=== PATIENT | female | born 1970 | race Caucasian/White ===

== ENCOUNTER → 2016-06-09 | Outpatient (CLI) | payer BC, OTHER ==
--- NOTE | 2016-06-18 07:00 | REP ---
Clinical: Pain with recent trauma. Technique: AP, lateral, bilateral oblique views of the left foot. Findings: Age-related degenerative changes are appreciated including moderate calcaneal heal spur. No obvious acute fracture or dislocation identified. No subcutaneous emphysema or radiodense foreign body. Impression: Degenerative changes. No acute fracture or dislocation. Signed by [place] Bartholomew MD 06/18/2016 06:52 A
== END ==
LOC: M ADAMS 10:59
PROVIDERS: ATTEND Physician Assistant
DX: M77.32 Calcaneal spur, left foot (principal)

== ENCOUNTER → 2017-04-22 | Outpatient (REF) | payer OTHER ==
[2017-04-22 13:27] LABS: BASO # 0.1 10^3/uL (0.0-0.2); BASO % 0.8 % (0.0-1.0); EOS # 0.2 10^3/uL (0.0-0.50); EOS % 2.6 % (0.0-3.0); HEMATOCRIT 37.3 % (36.0-47.0); HEMOGLOBIN 11.8 g/dl (12.0-16.0); IMMATURE GRANULOCYTE % 0.2 % (0-3.0); LYMPH % 33.1 % (24.0-44.0); MEAN CORPUSCULAR HEMOGLOBIN 24.9 pg (27.0-33.0); MEAN CORPUSCULAR HGB CONC 31.6 g/dl (32.0-36.5); MEAN CORPUSCULAR VOLUME 78.7 fl (80.0-96.0); MONO # 0.4 10^3/uL (0.0-0.8); MONO % 7.2 % (0.0-5.0); NEUTROPHILS # 3.4 10^3/uL (1.8-7.7); NEUTROPHILS % 56.1 % (36.0-66.0); PLATELET COUNT, AUTOMATED 259 10^3/uL (150-450); RED BLOOD COUNT 4.74 10^6/uL (4.00-5.40); RED CELL DISTRIBUTION WIDTH 14.5 % (11.5-14.5); WHITE BLOOD COUNT 6.1 10^3/uL (4.0-10.0)
[2017-04-22 13:44] LABS: TOTAL 25(OH) VITAMIN D 27.3 NG/ML (30.0-100.0)
[2017-04-22 13:52] LABS: ALBUMIN 3.4 GM/DL (3.2-5.2); ALBUMIN/GLOBULIN RATIO 1.03 (1.00-1.93); ALKALINE PHOSPHATASE 85 U/L (45-117); ALT/SGPT 13 U/L (12-78); ANION GAP 5 MEQ/L (8-16); AST/SGOT 11 U/L (7-37); BILIRUBIN,TOTAL 0.4 MG/DL (0.2-1.0); BLOOD UREA NITROGEN 9 MG/DL (7-18); CALCIUM LEVEL 8.5 MG/DL (8.5-10.1); CARBON DIOXIDE LEVEL 31 MEQ/L (21-32); CHLORIDE LEVEL 106 MEQ/L (98-107); CHOLESTEROL LEVEL 195 MG/DL (<200); CHOLESTEROL RISK RATIO 2.468 (<5); CREATININE FOR GFR 0.68 MG/DL (0.55-1.30); GLOMERULAR FILTRATION RATE > 60.0 (>58); GLUCOSE, FASTING 91 MG/DL (70-100); HDL CHOLESTEROL 79 MG/DL (>40); LDL CHOLESTEROL 95.8 MG/DL (<100); NON-HDL-C 116 MG/DL; POTASSIUM SERUM 4.1 MEQ/L (3.5-5.1); SODIUM LEVEL 142 MEQ/L (136-145); TOTAL PROTEIN 6.7 GM/DL (6.4-8.2); TRIGLYCERIDES LEVEL 101 MG/DL (<150)
== END ==
LOC: M SFHCADAM 07:51
DX: G43.009 Migraine without aura, not intractable, without status migrainosus (principal); I10 Essential (primary) hypertension; F41.9 Anxiety disorder, unspecified; Z63.9 Problem related to primary support group, unspecified; Z98.84 Bariatric surgery status
CPT/HCPCS: 84443

== ENCOUNTER → 2017-04-28 | Outpatient (CLI) | payer BC, OTHER | LOC: M RAD 10:15 | DX: G43.009 Migraine without aura, not intractable, without status migrainosus (principal) ==

== ENCOUNTER 2017-04-29 16:00 | Emergency (ER) | payer BC, OTHER ==
[2017-04-29] MEDS: METOCLOPRAMIDE INJ 10MG/2ML VIAL (J2765) IV (18:45)
[2017-04-29] MEDS: diphenhydrAMINE INJ 50MG/ML VIAL (J1200) IV (18:45)
[2017-04-29] MEDS: KETOROLAC 30 MG/ML VIAL (J1885) IV (18:46)
[2017-04-29] MEDS ORDERED: METOPROLOL SUCC *XL* 25MG TAB (TopROL *XL*) PO (19:15)
== END 2017-04-29 19:49 | disposition home or self-care (01) ==
LOC: M ED 16:00
DX: R51 Headache (principal); I10 Essential (primary) hypertension; Z98.84 Bariatric surgery status; Z79.899 Other long term (current) drug therapy
CPT/HCPCS: J1200

== ENCOUNTER → 2017-05-12 | Outpatient (REF) | payer OTHER ==
[2017-05-12 19:52] LABS: HEMATOCRIT 37.3 % (36.0-47.0); HEMOGLOBIN 11.6 g/dl (12.0-16.0); MEAN CORPUSCULAR HEMOGLOBIN 24.4 pg (27.0-33.0); MEAN CORPUSCULAR HGB CONC 31.1 g/dl (32.0-36.5); MEAN CORPUSCULAR VOLUME 78.5 fl (80.0-96.0); PLATELET COUNT, AUTOMATED 340 10^3/uL (150-450); RED BLOOD COUNT 4.75 10^6/uL (4.00-5.40); RED CELL DISTRIBUTION WIDTH 14.6 % (11.5-14.5); WHITE BLOOD COUNT 7.7 10^3/uL (4.0-10.0)
[2017-05-12 20:02] LABS: FERRITIN 5 NG/ML (8-252); IRON (FE) 26 UG/DL (50-170); PERCENT SATURATION 5.8 % (13.2-45.0); TOTAL IRON BINDING CAPACITY 449 UG/DL (250-450)
[2017-05-12 20:27] LABS: FOLATE 16.4 NG/ML; VITAMIN B12 LEVEL 1017 PG/ML
== END ==
LOC: M SFHCADAM 16:41
DX: D64.9 Anemia, unspecified (principal)

== ENCOUNTER → 2017-08-20 | Outpatient (REF) | payer OTHER ==
[2017-08-20 12:45] LABS: BASO # 0.1 10^3/uL (0.0-0.2); BASO % 0.7 % (0.0-1.0); EOS # 0.2 10^3/uL (0.0-0.50); EOS % 3.3 % (0.0-3.0); HEMATOCRIT 37.7 % (36.0-47.0); HEMOGLOBIN 12.2 g/dl (12.0-15.5); IMMATURE GRANULOCYTE % 0.3 % (0-3.0); LYMPH % 27.8 % (24.0-44.0); MEAN CORPUSCULAR HEMOGLOBIN 27.4 pg (27.0-33.0); MEAN CORPUSCULAR HGB CONC 32.4 g/dl (32.0-36.5); MEAN CORPUSCULAR VOLUME 84.5 fl (80.0-96.0); MONO # 0.6 10^3/uL (0.0-0.8); MONO % 8.6 % (0.0-5.0); NEUTROPHILS # 4.2 10^3/uL (1.8-7.7); NEUTROPHILS % 59.3 % (36.0-66.0); PLATELET COUNT, AUTOMATED 234 10^3/uL (150-450); RED BLOOD COUNT 4.46 10^6/uL (4.00-5.40); RED CELL DISTRIBUTION WIDTH 13.8 % (11.5-14.5); WHITE BLOOD COUNT 7.1 10^3/uL (4.0-10.0)
[2017-08-20 13:11] LABS: FERRITIN 17 NG/ML (8-252); IRON (FE) 125 UG/DL (50-170); PERCENT SATURATION 32.7 % (13.2-45.0); TOTAL IRON BINDING CAPACITY 382 UG/DL (250-450)
== END ==
LOC: M SFHCADAM 10:14
DX: D50.9 Iron deficiency anemia, unspecified (principal)

== ENCOUNTER → 2018-03-10 | Outpatient (REF) | payer OTHER ==
[~2018-03-10] MED LIST: REGL10TA6 PO
[2018-03-10 13:17] LABS: HEMATOCRIT 39.8 % (36.0-47.0); HEMOGLOBIN 12.8 g/dl (12.0-15.5); MEAN CORPUSCULAR HEMOGLOBIN 27.3 pg (27.0-33.0); MEAN CORPUSCULAR HGB CONC 32.2 g/dl (32.0-36.5); MEAN CORPUSCULAR VOLUME 84.9 fl (80.0-96.0); PLATELET COUNT, AUTOMATED 222 10^3/uL (150-450); RED BLOOD COUNT 4.69 10^6/uL (4.00-5.40); WHITE BLOOD COUNT 9.1 10^3/uL (4.0-10.0)
[2018-03-10 13:32] LABS: PERCENT SATURATION 31.3 % (13.2-45.0)
== END ==
LOC: M SFHCADAM 10:11
PROVIDERS: ATTEND Physician Assistant Medical
DX: I10 Essential (primary) hypertension (principal); D50.9 Iron deficiency anemia, unspecified

== ENCOUNTER → 2018-04-12 | Outpatient (REF) | payer OTHER ==
[2018-04-12 19:20] LABS: BLOOD UREA NITROGEN 11 MG/DL (7-18); CREATININE FOR GFR 0.78 MG/DL (0.55-1.30); GLOMERULAR FILTRATION RATE > 60.0 (>58)
== END ==
LOC: M LAB REF 18:27 → M LABDRWAD 18:27
PROVIDERS: ATTEND Obstetrics & Gynecology
DX: Z01.818 Encounter for other preprocedural examination (principal)

== ENCOUNTER → 2018-06-30 | Outpatient (REF) | payer OTHER | LOC: M LAB REF 12:06 | PROVIDERS: ATTEND Physician Assistant Medical | DX: J02.9 Acute pharyngitis, unspecified (principal) ==

== ENCOUNTER → 2018-07-21 | Outpatient (CLI) | payer BC, OTHER ==
[~2018-07-21] MED LIST changes: +PROHANCE 279.3MG/ML 15ML VIAL (A9576) As Ordered ONE
--- NOTE | 2018-07-21 14:20 | REP ---
MR BRAIN WITHOUT AND WITH CONTRAST: HISTORY: Migraine headaches. CONTRAST: ProHance 12 mL. COMPARISON: 04/28/2017. Multiple areas of increased signal intensity on T2-weighted images are present in the periventricular and subcortical white matter. These are unchanged compared to the previous study. There are no new areas of abnormal signal intensity. There are no areas of abnormal signal intensity in the corpus callosum, brainstem or cerebellum. There is no intraparenchymal hemorrhage, infarct, mass, or midline shift. There is no abnormal enhancement. The ventricular system is normal in appearance. There is no extracerebral collection. Mucosal thickening is present in the maxillary sinuses. IMPRESSION: There are multiple areas of increased signal intensity in the periventricular and subcortical white matter that are unchanged compared to the previous study. This may represent small vessel ischemic disease or possibly demyelinating disease. Electronically Signed by Raz Clayton MD 07/21/2018 02:22 P
== END ==
LOC: M RAD 12:12
DX: R93.0 Abnormal findings on diagnostic imaging of skull and head, not elsewhere classified (principal)
CPT/HCPCS: 70553; A9576

== ENCOUNTER → 2019-02-21 | Outpatient (REF) | payer OTHER ==
[~2019-02-21] MED LIST changes: -PROHANCE 279.3MG/ML 15ML VIAL (A9576) As Ordered ONE
[2019-02-21 13:46] LABS: BASO # 0.1 10^3/uL (0.0-0.2); BASO % 0.8 % (0.0-1.0); EOS # 0.3 10^3/uL (0.0-0.5); EOS % 4.1 % (0.0-3.0); HEMATOCRIT 40.3 % (36.0-47.0); HEMOGLOBIN 12.7 g/dl (12.0-15.5); LYMPH # 1.6 10^3/uL (1.5-5.0); LYMPH % 24.2 % (24.0-44.0); MEAN CORPUSCULAR HEMOGLOBIN 27.7 pg (27.0-33.0); MEAN CORPUSCULAR HGB CONC 31.5 g/dl (32.0-36.5); MONO # 0.5 10^3/uL (0.0-0.8); MONO % 7.4 % (0.0-5.0); NEUTROPHILS # 4.2 10^3/uL (1.5-8.5); NEUTROPHILS % 63.2 % (36.0-66.0); PLATELET COUNT, AUTOMATED 263 10^3/uL (150-450); RED BLOOD COUNT 4.58 10^6/uL (4.00-5.40); WHITE BLOOD COUNT 6.6 10^3/uL (4.0-10.0)
[2019-02-21 14:04] LABS: ALBUMIN 3.3 GM/DL (3.2-5.2); ALT/SGPT 22 U/L (12-78); BILIRUBIN,TOTAL 0.3 MG/DL (0.2-1.0); BLOOD UREA NITROGEN 16 MG/DL (7-18); CALCIUM LEVEL 8.6 MG/DL (8.5-10.1); CARBON DIOXIDE LEVEL 22 MEQ/L (21-32); CHLORIDE LEVEL 109 MEQ/L (98-107); CHOLESTEROL LEVEL 217 MG/DL (<200); CHOLESTEROL RISK RATIO 3.741 (<5); CREATININE FOR GFR 0.89 MG/DL (0.55-1.30); FERRITIN 17 NG/ML (8-252); FREE T4 1.05 NG/DL (0.76-1.46); GLOMERULAR FILTRATION RATE > 60.0 (>58); GLUCOSE, FASTING 76 MG/DL (70-100); HDL CHOLESTEROL 58 MG/DL (>40); IRON (FE) 133 UG/DL (50-170); LDL CHOLESTEROL 128 MG/DL (<100); NON-HDL-C 159 MG/DL; PERCENT SATURATION 35.8 % (13.2-45.0); POTASSIUM SERUM 4.3 MEQ/L (3.5-5.1); SODIUM LEVEL 139 MEQ/L (136-145); THYROID STIMULATING HORMONE 0.782 uIU/ML (0.358-3.740); TOTAL IRON BINDING CAPACITY 371 UG/DL (250-450); TOTAL PROTEIN 6.8 GM/DL (6.4-8.2); TRIGLYCERIDES LEVEL 156 MG/DL (<150)
[2019-02-21 15:22] LABS: FOLATE > 24.0 NG/ML; TOTAL 25(OH) VITAMIN D 28.3 NG/ML (30.0-100.0); VITAMIN B12 LEVEL 540 PG/ML
== END ==
LOC: M SFHCADAM 09:56
PROVIDERS: ATTEND Physician Assistant Medical
DX: I10 Essential (primary) hypertension (principal); G43.009 Migraine without aura, not intractable, without status migrainosus; Z98.84 Bariatric surgery status; D50.9 Iron deficiency anemia, unspecified

== ENCOUNTER → 2019-08-31 | Outpatient (CLI) | payer BC, OTHER ==
--- NOTE | 2019-09-01 04:02 | REP ---
REASON: Foot pain. PRIORS: None. There are plantar and retrocalcaneal heel spurs. There are minimal degenerative changes seen involving the midfoot region. There is no acute fracture. IMPRESSION: Chronic changes. Electronically Signed by Juan Cook DO 09/01/2019 04:33 P
== END ==
LOC: M ADAMS 13:08
PROVIDERS: ATTEND Physician Assistant
DX: M77.32 Calcaneal spur, left foot (principal)

== ENCOUNTER → 2020-01-25 | Outpatient (REF) | payer OTHER, BC ==
[2020-01-25 17:08] LABS: BASO # 0.1 10^3/uL (0.0-0.2); BASO % 0.7 % (0.0-1.0); EOS # 0.3 10^3/uL (0.0-0.5); HEMATOCRIT 39.6 % (36.0-47.0); LYMPH # 2.4 10^3/uL (1.5-5.0); LYMPH % 24.6 % (24.0-44.0); MEAN CORPUSCULAR HEMOGLOBIN 26.3 pg (27.0-33.0); MEAN CORPUSCULAR HGB CONC 30.3 g/dl (32.0-36.5); MEAN CORPUSCULAR VOLUME 86.7 fl (80.0-96.0); MONO # 0.7 10^3/uL (0.0-0.8); MONO % 7.3 % (0.0-5.0); NEUTROPHILS # 6.2 10^3/uL (1.5-8.5); NEUTROPHILS % 64.2 % (36.0-66.0); PLATELET COUNT, AUTOMATED 334 10^3/uL (150-450); RED BLOOD COUNT 4.57 10^6/uL (4.00-5.40); WHITE BLOOD COUNT 9.7 10^3/uL (4.0-10.0)
[2020-01-25 17:18] LABS: INR 0.97; PROTHROMBIN TIME 13.1 SECONDS (12.5-14.3)
== END ==
LOC: M LABDRWAD 16:22
PROVIDERS: ATTEND Psychiatry & Neurology Vascular Neurology
DX: R93.0 Abnormal findings on diagnostic imaging of skull and head, not elsewhere classified (principal)

== ENCOUNTER → 2020-05-29 | Outpatient (CLI) | payer BC, OTHER ==
[~2020-05-29] MED LIST changes: +AIMO70IN2 SQ; +BONI1TAB PO; +CENT1TAB PO; +LISI10TA22 PO; +PAME25CA PO; +PROHANCE 279.3MG/ML 15ML VIAL As Ordered ONE; +PROP120C PO; +VIAC1CHW PO; +ZOLO100T PO; +[UNRECOGNIZED DRUG - CODE] PO
--- NOTE | 2020-05-29 15:15 | REP ---
INDICATION: (+) FM H/O BRST CA DENSE BRST TISSUE. COMPARISON: 04/06/2019. TECHNIQUE: Three Karolyn MRI imaging was performed with a dedicated breast coil. Axial, coronal, and sagittal T1 and T2 weighted scans were obtained with and without fat saturation in the usual fashion. The study includes dynamically acquired post gadolinium-enhanced imaging with image subtraction. Maximum intensity projection and multi planar reformation imaging is included as well. This study is interpreted with the aid of [employer] an FDA approved computer aided detection (CAD) software program, on a dedicated breast MRI workstation. The gadolinium enhancement dose is 12 mL of intravenous ProHance. FINDINGS: There is moderate parenchymal tissue seen bilaterally. There are again multiple cysts scattered throughout both breasts. Largest cyst on the right is superior and bilobed, measuring 1.3 cm in maximum diameter. All of the cysts in the left breast are subcentimeter in size. There is no evidence of axillary adenopathy. There is mild to moderate background parenchymal enhancement bilaterally. There is no evidence of suspicious enhancing mass or morphologic abnormality. Incidental note is made of multiple gallstones in the gallbladder. IMPRESSION: BI-RADS category 2 benign bilateral breast MRI. Multiple cysts are again noted throughout both breasts. No suspicious enhancing mass or morphologic abnormality. <Electronically signed by Zeke Mar > 05/29/20 [id number]
== END ==
LOC: M RAD 11:05
PROVIDERS: ATTEND Obstetrics & Gynecology
DX: N63.10 Unspecified lump in the right breast, unspecified quadrant (principal); Z80.3 Family history of malignant neoplasm of breast
CPT/HCPCS: A9576; C8908

== ENCOUNTER → 2020-06-01 | Outpatient (CLI) | payer OTHER, BC ==
[~2020-06-01] MED LIST changes: -PROHANCE 279.3MG/ML 15ML VIAL As Ordered ONE
== END ==
LOC: M LABSMTC 10:05
PROVIDERS: ATTEND Anesthesiology
DX: Z01.812 Encounter for preprocedural laboratory examination (principal); Z20.822 Contact with and (suspected) exposure to COVID-19

== ENCOUNTER → 2020-06-29 | Outpatient (CLI) | payer OTHER, BC | LOC: M LABSMTC 10:49 | PROVIDERS: ATTEND Anesthesiology | DX: Z01.812 Encounter for preprocedural laboratory examination (principal); Z20.822 Contact with and (suspected) exposure to COVID-19 ==

== ENCOUNTER 2020-07-04 09:24 | Day surgery (SDC) | payer BC, OTHER ==
[~2020-07-04] VITALS: Ht 162.6 cm; Wt 65.8 kg
[~2020-07-04 09:24] MED LIST changes: +NS 1,000 ML IV ONE
[2020-07-04] MEDS ORDERED: propofoL 200 MG/20 ML VIAL As Ordered ONE (09:59)
[2020-07-04] MEDS ORDERED: LIDOCAINE 2% 100MG/5ML SDV (FOR ANES.) As Ordered ONE (10:00)
--- NOTE | 2020-07-04 11:04 | ROOR ---
Patient Name: Felicia Lomeli Procedure Date: 07/04/2020 10:27 AM Date of : 1970 Age: 50 Room: [facility] Gender: Female Note Status: Finalized Procedure: Colonoscopy Indications: Screening for colorectal malignant neoplasm Providers: DO Margaret Henry MD: DWAYNE Johnson Requesting Provider: Medicines: Propofol per Anesthesia Complications: No immediate complications. Procedure: Pre-Anesthesia Assessment: - Prior to the procedure, a History and Physical was performed, and patient medications and allergies were reviewed. The patient is competent. The risks and benefits of the procedure and the sedation options and risks were discussed with the patient. All questions were answered and informed consent was obtained. Patient identification and proposed procedure were verified by the physician, the nurse, the administrative specialist and the electrical manufacturing technician in the endoscopy suite. Mental Status Examination: alert and oriented. Airway Examination: normal oropharyngeal airway and neck mobility. Respiratory Examination: clear to auscultation. CV Examination: normal. Prophylactic Antibiotics: The patient does not require prophylactic antibiotics. Prior Anticoagulants: The patient has taken no previous anticoagulant or antiplatelet agents. ASA Grade Assessment: II - A patient with mild systemic disease. After reviewing the risks and benefits, the patient was deemed in satisfactory condition to undergo the procedure. The anesthesia plan was to use monitored anesthesia care (MAC). Immediately prior to administration of medications, the patient was re-assessed for adequacy to receive sedatives. The heart rate, respiratory rate, oxygen saturations, blood pressure, adequacy of pulmonary ventilation, and response to care were monitored throughout the procedure. The physical status of the patient was re-assessed after the procedure. The Colonoscope was introduced through the anus and advanced to the cecum, identified by appendiceal orifice and ileocecal valve. The colonoscopy was performed without difficulty. The patient tolerated the procedure well. Findings: The colon (entire examined portion) appeared normal. The colon (entire examined portion) was moderately tortuous. Advancing the scope required changing the patient to a supine position. Estimated blood loss: none. Impression: - The entire examined colon is normal. - Tortuous colon. - No specimens collected. Recommendation: - Patient has a contact number available for emergencies. The signs and symptoms of potential delayed complications were discussed with the patient. Return to normal activities tomorrow. Written discharge instructions were provided to the patient. - Return to my office PRN. - Repeat colonoscopy in 5-10 years for screening purposes. Procedure Code(s): --- Professional --- G0121, Colorectal cancer screening; colonoscopy on individual not meeting criteria for high risk Diagnosis Code(s): --- Professional --- Z12.11, Encounter for screening for malignant neoplasm of colon Q43.8, Other specified congenital malformations of intestine CPT copyright 2019 [employer]. All rights reserved. The codes documented in this report are preliminary and upon time study technician review may be revised to meet current compliance requirements. Zeke Huffman DO 07/04/2020 11:04:03 AM Electronically signed by Zeke Huffman DO Number of Addenda: 0 Note Initiated On: 07/04/2020 10:27 AM Estimated Blood Loss: Estimated blood loss: none.
[2020-07-04 11:25] VITALS: BP 205/96
== END 2020-07-04 11:33 | disposition home or self-care (01) ==
LOC: M OPP 09:24
PROVIDERS: ATTEND Surgery
DX: Z12.11 Encounter for screening for malignant neoplasm of colon (principal); Q43.8 Other specified congenital malformations of intestine; F41.9 Anxiety disorder, unspecified; F32.9 Major depressive disorder, single episode, unspecified; G43.909 Migraine, unspecified, not intractable, without status migrainosus; Z79.899 Other long term (current) drug therapy

== ENCOUNTER → 2021-02-11 | Outpatient (REF) ==
[~2021-02-11] MED LIST changes: -NS 1,000 ML IV ONE
== END ==
LOC: M LABSMTC 09:19
PROVIDERS: ATTEND Pediatrics
DX: Z11.52 Encounter for screening for COVID-19 (principal); Z20.822 Contact with and (suspected) exposure to COVID-19

== ENCOUNTER → 2021-04-04 | Outpatient (REF) | payer OTHER ==
[2021-04-04 11:10] LABS: BASO # 0.1 10^3/uL (0.0-0.2); BASO % 0.9 % (0.0-1.0); EOS # 0.4 10^3/uL (0.0-0.5); EOS % 4.4 % (0.0-3.0); HEMATOCRIT 37.4 % (36.0-47.0); HEMOGLOBIN 11.7 g/dl (12.0-15.5); LYMPH # 2.1 10^3/uL (1.5-5.0); LYMPH % 26.5 % (24.0-44.0); MEAN CORPUSCULAR HEMOGLOBIN 25.4 pg (27.0-33.0); MEAN CORPUSCULAR HGB CONC 31.3 g/dl (32.0-36.5); MEAN CORPUSCULAR VOLUME 81.3 fl (80.0-96.0); MONO # 0.6 10^3/uL (0.0-0.8); MONO % 7.3 % (2.0-8.0); NEUTROPHILS # 4.9 10^3/uL (1.5-8.5); NEUTROPHILS % 60.8 % (36.0-66.0); PLATELET COUNT, AUTOMATED 341 10^3/uL (150-450); WHITE BLOOD COUNT 8.1 10^3/uL (4.0-10.0)
[2021-04-04 11:50] LABS: ALBUMIN 3.2 GM/DL (3.2-5.2); ALT/SGPT 15 U/L (12-78); BILIRUBIN,TOTAL 0.3 MG/DL (0.2-1.0); BLOOD UREA NITROGEN 13 MG/DL (7-18); CARBON DIOXIDE LEVEL 27 MEQ/L (21-32); CHLORIDE LEVEL 104 MEQ/L (98-107); CHOLESTEROL LEVEL 223 MG/DL (<200); CHOLESTEROL RISK RATIO 3.655 (<5); CREATININE FOR GFR 0.75 MG/DL (0.55-1.30); FERRITIN 7 NG/ML (8-252); FREE T4 1.06 NG/DL (0.76-1.46); GLOMERULAR FILTRATION RATE > 60.0 (>51); GLUCOSE, FASTING 97 MG/DL (70-100); HDL CHOLESTEROL 61 MG/DL (>40); IRON (FE) 53 UG/DL (50-170); LDL CHOLESTEROL 139 MG/DL (<100); NON-HDL-C 162 MG/DL; POTASSIUM SERUM 4.7 MEQ/L (3.5-5.1); SODIUM LEVEL 139 MEQ/L (136-145); TOTAL IRON BINDING CAPACITY 441 UG/DL (250-450); TRIGLYCERIDES LEVEL 116 MG/DL (<150)
[2021-04-04 11:54] LABS: FOLATE > 24.0 NG/ML; VITAMIN B12 LEVEL 1803 PG/ML
[2021-04-04 13:15] LABS: HEMOGLOBIN A1c 5.9 %
== END ==
LOC: M SFHCADAM 08:23
PROVIDERS: ATTEND Physician Assistant Medical
DX: Z00.00 Encounter for general adult medical examination without abnormal findings (principal); I10 Essential (primary) hypertension; F41.9 Anxiety disorder, unspecified; G43.009 Migraine without aura, not intractable, without status migrainosus; Z98.84 Bariatric surgery status; D50.9 Iron deficiency anemia, unspecified

== ENCOUNTER → 2021-06-25 | Outpatient (CLI) | payer BC, OTHER ==
[~2021-06-25] MED LIST changes: +PROHANCE 279.3MG/ML 15ML VIAL As Ordered ONE
== END ==
LOC: M RAD 07:56
PROVIDERS: ATTEND Obstetrics & Gynecology
DX: N60.01 Solitary cyst of right breast (principal); N60.02 Solitary cyst of left breast; Z80.3 Family history of malignant neoplasm of breast
CPT/HCPCS: A9576; C8908

== ENCOUNTER → 2022-04-09 | Outpatient (REF) | payer OTHER ==
[~2022-04-09] MED LIST changes: -PROHANCE 279.3MG/ML 15ML VIAL As Ordered ONE
[2022-04-09 14:57] LABS: BASO # 0.1 10^3/uL (0.0-0.2); BASO % 0.8 % (0.0-1.0); EOS # 0.3 10^3/uL (0.0-0.5); EOS % 4.1 % (0.0-3.0); HEMATOCRIT 32.2 % (36.0-47.0); HEMATOCRIT 32.5 % (36.0-47.0); HEMOGLOBIN 9.7 g/dl (12.0-15.5); LYMPH # 2.1 10^3/uL (1.5-5.0); LYMPH % 27.7 % (24.0-44.0); MEAN CORPUSCULAR HEMOGLOBIN 22.1 pg (27.0-33.0); MEAN CORPUSCULAR HGB CONC 29.8 g/dl (32.0-36.5); MEAN CORPUSCULAR VOLUME 74.2 fl (80.0-96.0); MONO # 0.6 10^3/uL (0.0-0.8); MONO % 7.8 % (2.0-8.0); NEUTROPHILS # 4.5 10^3/uL (1.5-8.5); NEUTROPHILS % 59.3 % (36.0-66.0); PLATELET COUNT, AUTOMATED 405 10^3/uL (150-450); RED BLOOD COUNT 4.38 10^6/uL (4.00-5.40); WHITE BLOOD COUNT 7.6 10^3/uL (4.0-10.0)
[2022-04-09 15:41] LABS: IRON (FE) 17 UG/DL (50-170); PERCENT SATURATION 3.9 % (13.2-45.0); TOTAL IRON BINDING CAPACITY 435 UG/DL (250-425)
[2022-04-09 15:46] LABS: ALBUMIN 3.1 G/DL (3.2-5.2); ALKALINE PHOSPHATASE 113 U/L (46-116); ALT/SGPT 11 U/L (7.0-40); AST/SGOT 14 U/L (<34); BILIRUBIN,TOTAL 0.3 MG/DL (0.3-1.2); BLOOD UREA NITROGEN 15 MG/DL (9-23); CALCIUM LEVEL 9.4 MG/DL (8.5-10.1); CARBON DIOXIDE LEVEL 26 MMOL/L (20-31); CHLORIDE LEVEL 105 MMOL/L (98-107); CHOLESTEROL LEVEL 208 MG/DL (<200); CHOLESTEROL RISK RATIO 3.33 (<5); CREATININE FOR GFR 0.78 MG/DL (0.55-1.30); FOLATE > 24.0 NG/ML (>5.4); FREE T4 1.06 NG/DL (0.89-1.76); GLOMERULAR FILTRATION RATE > 60.0 (>51); GLUCOSE, FASTING 90 MG/DL (60-100); HDL CHOLESTEROL 62.3 MG/DL (>40); MAGNESIUM LEVEL 2.1 MG/DL (1.8-2.4); NON-HDL-C 146 MG/DL; POTASSIUM SERUM 4.8 MMOL/L (3.5-5.1); SODIUM LEVEL 135 MMOL/L (136-145); THYROID STIMULATING HORMONE 1.202 uIU/ML (0.55-4.78); TOTAL 25(OH) VITAMIN D 17.1 NG/ML (20.0-100.0); VITAMIN B12 LEVEL 712 PG/ML (211-911)
[2022-04-09 21:37] LABS: LDL CHOLESTEROL 120.3 MG/DL (<100); TOTAL PROTEIN 6.7 G/DL (5.7-8.2); TRIGLYCERIDES LEVEL 127 MG/DL (<150)
== END ==
LOC: M SFHCADAM 10:24
PROVIDERS: ATTEND Physician Assistant Medical
DX: I10 Essential (primary) hypertension (principal); G43.009 Migraine without aura, not intractable, without status migrainosus; D50.9 Iron deficiency anemia, unspecified; Z98.84 Bariatric surgery status

== ENCOUNTER 2022-04-21 12:54 | Outpatient (CLI) | payer BC, OTHER ==
[~2022-04-21 12:54] MED LIST changes: +ALBUTEROL SULFATE 2.5MG/0.5ML INH NEB SOLN INH PRN; +EPINEPHrine INJ 1 MG/ML 1ML AMP IM PRN; +diphenhydrAMINE 50MG/ML VIAL IV PRN; +methylPREDNISolone 125MG 2ML VIAL IV PRN
[2022-04-21 13:25] VITALS: BP 130/61
[2022-04-21] MEDS ORDERED: IRON SUCROSE 200 MG in NS 190 ML IV ONE (13:30)
[2022-04-21] MEDS ORDERED: NS 1,000 ML IV SCH (13:30)
[2022-04-21] MEDS ORDERED: IRON SUCROSE 200 MG in NS 100 ML OVER 1 HR IV ONE (13:30)
== END 2022-04-21 15:05 | disposition home or self-care (01) ==
LOC: M INFU 12:54
PROVIDERS: ATTEND Physician Assistant Medical
DX: D50.9 Iron deficiency anemia, unspecified (principal)
CPT/HCPCS: 96365; J1756

== ENCOUNTER 2022-05-05 13:15 | Outpatient (CLI) | payer BC, OTHER ==
[~2022-05-05] VITALS: Ht 167.6 cm; Wt 68.6 kg
[2022-05-05 13:15] VITALS: BP 164/89
[2022-05-05] MEDS ORDERED: NS 1,000 ML IV SCH (13:30)
[2022-05-05] MEDS ORDERED: IRON SUCROSE 200 MG in NS 190 ML IV ONE (13:30)
[2022-05-05 15:55] VITALS: BP 146/91
== END 2022-05-05 15:55 | disposition home or self-care (01) ==
LOC: M INFU 13:15
PROVIDERS: ATTEND Physician Assistant Medical
DX: D50.9 Iron deficiency anemia, unspecified (principal)
CPT/HCPCS: 96365; J1756

== ENCOUNTER → 2022-05-21 | Outpatient (CLI) | payer BC, OTHER ==
[~2022-05-21] VITALS: Ht 165.1 cm; Wt 68.6 kg
[~2022-05-21] MED LIST changes: +IRON SUCROSE 200 MG in NS 190 ML IV ONE; +NS 1,000 ML IV SCH
[2022-05-21 07:25] VITALS: BP 145/91
[2022-05-21 09:15] VITALS: BP 147/75
== END ==
LOC: M INFU 09:25
PROVIDERS: ATTEND Physician Assistant Medical
DX: D50.9 Iron deficiency anemia, unspecified (principal)
CPT/HCPCS: 96365; J1756

== ENCOUNTER → 2022-06-10 | Outpatient (CLI) | payer BC, OTHER ==
[~2022-06-10] MED LIST changes: -ALBUTEROL SULFATE 2.5MG/0.5ML INH NEB SOLN INH PRN; -EPINEPHrine INJ 1 MG/ML 1ML AMP IM PRN; -IRON SUCROSE 200 MG in NS 190 ML IV ONE; -NS 1,000 ML IV SCH; +PROHANCE 279.3MG/ML 15ML VIAL ONE; -diphenhydrAMINE 50MG/ML VIAL IV PRN; -methylPREDNISolone 125MG 2ML VIAL IV PRN
== END ==
LOC: M PLAIMG 07:50
PROVIDERS: ATTEND Obstetrics & Gynecology
DX: Z12.31 Encounter for screening mammogram for malignant neoplasm of breast (principal); Z80.3 Family history of malignant neoplasm of breast
CPT/HCPCS: A9576; C8908

== ENCOUNTER 2022-10-18 13:10 | Emergency (ER) | payer BC, OTHER ==
[~2022-10-18] VITALS: Ht 165.1 cm; Wt 71.9 kg
[~2022-10-18 13:10] MED LIST changes: -PROHANCE 279.3MG/ML 15ML VIAL ONE
[2022-10-18] MEDS ORDERED: PRED20TA PO (15:25)
[2022-10-18 15:49] VITALS: BP 150/84; TEMP 98; O2SAT 99
== END 2022-10-18 15:54 | disposition home or self-care (01) ==
LOC: M ED 13:10
DX: M72.2 Plantar fascial fibromatosis (principal); I10 Essential (primary) hypertension; G35 Multiple sclerosis; R51.9 Headache, unspecified; F41.9 Anxiety disorder, unspecified; Z98.84 Bariatric surgery status; Z79.899 Other long term (current) drug therapy

== ENCOUNTER → 2023-04-21 | Outpatient (REF) | payer BC, OTHER ==
[~2023-04-21] MED LIST changes: +PRED20TA PO
[2023-04-21 13:47] LABS: HEMATOCRIT 38.5 % (36.0-47.0)
[2023-04-21 13:48] LABS: BASO % 0.7 % (0.0-1.0); EOS # 0.3 10^3/uL (0.0-0.5); EOS % 4.4 % (0.0-3.0); HEMATOCRIT 38.8 % (36.0-47.0); HEMOGLOBIN 12.4 g/dl (12.0-15.5); LYMPH # 1.5 10^3/uL (1.5-5.0); LYMPH % 24.5 % (24.0-44.0); MEAN CORPUSCULAR HEMOGLOBIN 26.5 pg (27.0-33.0); MEAN CORPUSCULAR VOLUME 82.9 fl (80.0-96.0); MONO # 0.4 10^3/uL (0.0-0.8); MONO % 6.5 % (2.0-8.0); NEUTROPHILS # 3.9 10^3/uL (1.5-8.5); NEUTROPHILS % 63.7 % (36.0-66.0); PLATELET COUNT, AUTOMATED 339 10^3/uL (150-450); RED BLOOD COUNT 4.68 10^6/uL (4.00-5.40); WHITE BLOOD COUNT 6.1 10^3/uL (4.0-10.0)
[2023-04-21 13:51] LABS: TOTAL IRON BINDING CAPACITY 388 UG/DL (250-425)
[2023-04-21 13:52] LABS: ALKALINE PHOSPHATASE 128 U/L (46-116); ALT/SGPT 10 U/L (7.0-40); AST/SGOT 10 U/L (<34); BILIRUBIN,TOTAL 0.4 MG/DL (0.3-1.2); BLOOD UREA NITROGEN 12 MG/DL (9-23); CALCIUM LEVEL 8.9 MG/DL (8.5-10.1); CARBON DIOXIDE LEVEL 30 MMOL/L (20-31); CHLORIDE LEVEL 106 MMOL/L (98-107); CHOLESTEROL LEVEL 231 MG/DL (<200); CHOLESTEROL RISK RATIO 3.27 (<5); CREATININE FOR GFR 0.77 MG/DL (0.55-1.30); GLOMERULAR FILTRATION RATE > 60.0 (>51); GLUCOSE, FASTING 91 MG/DL (60-100); HDL CHOLESTEROL 70.5 MG/DL (>40); IRON (FE) 64 UG/DL (50-170); LDL CHOLESTEROL 143.7 MG/DL (<100); MAGNESIUM LEVEL 2.1 MG/DL (1.8-2.4); NON-HDL-C 160.5 MG/DL; PERCENT SATURATION 16.5 % (13.2-45.0); POTASSIUM SERUM 4.7 MMOL/L (3.5-5.1); SODIUM LEVEL 138 MMOL/L (136-145); TOTAL PROTEIN 6.5 G/DL (5.7-8.2); TRIGLYCERIDES LEVEL 84 MG/DL (<150)
[2023-04-21 13:55] LABS: FREE T4 0.94 NG/DL (0.89-1.76); THYROID STIMULATING HORMONE 1.568 uIU/ML (0.55-4.78)
[2023-04-21 13:56] LABS: FERRITIN 7.4 NG/ML (7.3-270.7); FOLATE > 24.0 NG/ML (>5.4); TOTAL 25(OH) VITAMIN D 66.6 NG/ML (20.0-100.0); VITAMIN B12 LEVEL 650 PG/ML (211-911)
[2023-04-21 14:31] LABS: HEMOGLOBIN A1c 5.6 % (4.0-6.0)
== END ==
LOC: M SFHCADAM 07:42
PROVIDERS: ATTEND Physician Assistant Medical
DX: I10 Essential (primary) hypertension (principal); D50.9 Iron deficiency anemia, unspecified; Z98.84 Bariatric surgery status

== ENCOUNTER → 2023-06-29 | Outpatient (CLI) | payer BC ==
[~2023-06-29] MED LIST changes: +PROHANCE 279.3MG/ML 15ML VIAL ONE
== END ==
LOC: M PLAIMG 09:21
PROVIDERS: ATTEND Advanced Practice Midwife
DX: Z80.3 Family history of malignant neoplasm of breast (principal)

== ENCOUNTER → 2023-07-28 | Outpatient (REF) | payer BC ==
[~2023-07-28] MED LIST changes: -PROHANCE 279.3MG/ML 15ML VIAL ONE
== END ==
LOC: M LAB REF 11:57
PROVIDERS: ATTEND Obstetrics & Gynecology
DX: N90.7 Vulvar cyst (principal)

== ENCOUNTER → 2023-11-10 | Outpatient (REF) | payer OTHER ==
[2023-11-10 13:23] LABS: RSV AMPLIFICATION NEGATIVE (NEGATIVE)
== END ==
LOC: M LAB REF 12:16
PROVIDERS: ATTEND Nurse Practitioner Family
DX: J06.9 Acute upper respiratory infection, unspecified (principal); Z20.828 Contact with and (suspected) exposure to other viral communicable diseases

== ENCOUNTER 2024-01-22 09:45 | Emergency (ER) | payer BC, OTHER ==
[~2024-01-22] VITALS: Ht 165.1 cm; Wt 66.4 kg
[2024-01-22] MEDS ORDERED: LOSA100T46 (10:01)
[2024-01-22] MEDS ORDERED: [UNRECOGNIZED DRUG - CODE] IM (10:01)
[2024-01-22] MEDS ORDERED: RIME75TA (10:01)
[2024-01-22] MEDS ORDERED: ATOG30TA (10:01)
[2024-01-22] MEDS: ACETAMINOPHEN 500 MG TAB PO ONE (11:06)
[2024-01-22] MEDS: DERMABOND TOPICAL SKIN ADHESIVE TOP ONE (12:13)
[2024-01-22 12:33] VITALS: BP 162/82; TEMP 98.2; O2SAT 98
== END 2024-01-22 12:36 | disposition home or self-care (01) ==
LOC: M ED 09:45
DX: S01.01XA Laceration without foreign body of scalp, initial encounter (principal); W01.198A Fall on same level from slipping, tripping and stumbling with subsequent striking against other object, initial encounter; Y92.009 Unspecified place in unspecified non-institutional (private) residence as the place of occurrence of the external cause; Y93.9 Activity, unspecified; Y99.9 Unspecified external cause status; I10 Essential (primary) hypertension; G35 Multiple sclerosis; Z79.899 Other long term (current) drug therapy

== ENCOUNTER → 2024-03-17 | Outpatient (REF) | payer BC ==
[~2024-03-17] MED LIST changes: +ATOG30TA; +LOSA100T46; +RIME75TA; +[UNRECOGNIZED DRUG - CODE] IM
[2024-03-17 14:20] LABS: BASO # 0.1 10^3/uL (0.0-0.2); BASO % 0.8 % (0.0-1.0); BLOOD UREA NITROGEN 12 MG/DL (9-23); CARBON DIOXIDE LEVEL 30 MMOL/L (20-31); CHLORIDE LEVEL 105 MMOL/L (98-107); CREATININE FOR GFR 0.73 MG/DL (0.55-1.30); EOS # 0.3 10^3/uL (0.0-0.5); EOS % 4.1 % (0.0-3.0); GLOMERULAR FILTRATION RATE > 60.0 (>51); GLUCOSE, FASTING 85 MG/DL (60-100); HEMATOCRIT 38.3 % (36.0-47.0); HEMOGLOBIN 11.9 g/dl (12.0-15.5); LYMPH # 1.7 10^3/uL (1.5-5.0); LYMPH % 27.4 % (24.0-44.0); MEAN CORPUSCULAR HEMOGLOBIN 25.6 pg (27.0-33.0); MEAN CORPUSCULAR HGB CONC 31.1 g/dl (32.0-36.5); MEAN CORPUSCULAR VOLUME 82.4 fl (80.0-96.0); MONO # 0.4 10^3/uL (0.0-0.8); MONO % 6.5 % (2.0-8.0); NEUTROPHILS # 3.8 10^3/uL (1.5-8.5); PLATELET COUNT, AUTOMATED 308 10^3/uL (150-450); POTASSIUM SERUM 4.6 MMOL/L (3.5-5.1); RED BLOOD COUNT 4.65 10^6/uL (4.00-5.40); SODIUM LEVEL 142 MMOL/L (136-145); WHITE BLOOD COUNT 6.3 10^3/uL (4.0-10.0)
== END ==
LOC: M SFHCADAM 08:11
PROVIDERS: ATTEND Physician Assistant Medical
DX: Z01.818 Encounter for other preprocedural examination (principal)

== ENCOUNTER 2024-12-04 21:53 | Emergency (ER) | payer BC ==
[~2024-12-04] VITALS: Ht 165.1 cm; Wt 63.1 kg
[2024-12-04 21:59] VITALS: TEMP 97.2
[2024-12-04 22:48] LABS: BASO # 0.1 10^3/uL (0.0-0.2); BASO % 0.9 % (0.0-1.0); EOS # 0.3 10^3/uL (0.0-0.5); EOS % 3.5 % (0.0-3.0); LYMPH # 3.0 10^3/uL (1.5-5.0); LYMPH % 35.2 % (24.0-44.0); MONO # 0.7 10^3/uL (0.0-0.8); MONO % 7.7 % (2.0-8.0); NEUTROPHILS # 4.5 10^3/uL (1.5-8.5); NEUTROPHILS % 52.5 % (36.0-66.0); PLATELET COUNT, AUTOMATED 354 10^3/uL (150-450)
[2024-12-04] MEDS ORDERED: ISOVUE-370 76% 100 ML VIAL As Ordered ONE (23:04)
[2024-12-04 23:11] LABS: CALCIUM LEVEL 9.4 MG/DL (8.5-10.1); CARBON DIOXIDE LEVEL 28 MMOL/L (20-31); CHLORIDE LEVEL 102 MMOL/L (98-107); CK-MB VALUE MASS < 1.0 NG/ML (<3.6); CREATININE FOR GFR 0.87 MG/DL (0.55-1.30); GLOMERULAR FILTRATION RATE 79.1 (>51); POTASSIUM SERUM 5.2 MMOL/L (3.5-5.1); SODIUM LEVEL 139 MMOL/L (136-145)
[2024-12-04 23:31] LABS: CPK CREATINE PHOSPHOKINASE 58 U/L (34-145)
[2024-12-04] MEDS: ASPIRIN 81 MG CHEWABLE TABLET PO ONE (23:44)
[2024-12-04] MEDS: ACETAMINOPHEN *IV* 1,000 MG in IV 1 EA IV ONE (23:45)
[2024-12-04 23:53] LABS: CK-MB VALUE MASS < 1.0 NG/ML (<3.6)
[2024-12-04 23:55] LABS: CPK CREATINE PHOSPHOKINASE 48 U/L (34-145)
[2024-12-05 00:36] LABS: C REACTIVE PROTEIN QUANTITATIV < 0.50 MG/DL (<1.0)
[2024-12-05 00:53] LABS: ERYTHROCYTE SEDIMENTATION RATE 62 mm/hr (0-30)
[2024-12-05 01:15] VITALS: BP 138/66; O2SAT 99
[2024-12-05] MEDS ORDERED: PRED20TA PO (01:21)
== END 2024-12-05 01:35 | disposition home or self-care (01) ==
LOC: M ED 21:53
DX: R07.89 Other chest pain (principal); I10 Essential (primary) hypertension; D50.9 Iron deficiency anemia, unspecified; G43.909 Migraine, unspecified, not intractable, without status migrainosus; F32.A Depression, unspecified; F41.9 Anxiety disorder, unspecified; Z98.84 Bariatric surgery status; K80.20 Calculus of gallbladder without cholecystitis without obstruction; Z79.899 Other long term (current) drug therapy
CPT/HCPCS: 71045; 71275; 80048; 82550; 82553; 84484; 85025; 85652; 86140; 93005; 93041; 94760; 96365; 96366; 99285; J0131; Q9967